=== PATIENT | male | born 1965 | race Caucasian/White ===

== ENCOUNTER → 2018-06-15 | Outpatient (CLI) | payer OTHER ==
--- NOTE | 2018-06-16 05:15 | REP ---
Clinical: Lung screening. History nicotine dependence Comparison: None Technique: Axial low-dose noncontrast images from the thoracic inlet to the upper abdomen using lung screening technique. Findings: The lung patel are well-aerated. No consolidation, significant nodule or mass lesion is appreciated. No pleural effusion/reaction or pneumothorax. Tracheobronchial tree is patent. Mediastinum demonstrates mild atherosclerotic changes of the coronary arteries without cardiomegaly. Impression: Lung-RADS category I. No nodule or suspicious abnormality. Management recommendations include annual low-dose CT reevaluation. Electronically Signed by Fran Mills MD 06/16/2018 05:06 A
== END ==
LOC: M RAD 17:19
PROVIDERS: ATTEND Internal Medicine
DX: Z12.2 Encounter for screening for malignant neoplasm of respiratory organs (principal); Z87.891 Personal history of nicotine dependence

== ENCOUNTER 2018-08-18 07:08 | Day surgery (SDC) | payer OTHER ==
[~2018-08-18] VITALS: Ht 170.2 cm; Wt 111.5 kg
[~2018-08-18 07:08] MED LIST: ASPI81CH44 PO; ATOR80TA59 PO; CARV25TA PO; CYCL10TA PO; FENO145T13 PO; FURO20TA2 PO; JARD1TAB3 PO; LISI-538 PO; LOVA1CAP17 PO; METF500T13 PO; NOVOINJ3 SC; NS 1,000 ML IV ONE; ONETAB32 PO; QC A650T3 PO; RA M500C PO; RANI1TAB38 PO; SYNT75TA PO; TOUJ1.2I SC; VITA50005 PO; [UNRECOGNIZED DRUG - OTHER] PO
[2018-08-18] MEDS ORDERED: PROPOFOL 200 MG/20 ML VIAL As Ordered ONE (07:50)
[2018-08-18] MEDS ORDERED: LIDOCAINE 2% INJ 100 MG/5 ML SDV (FOR ANES.) As Ordered ONE (07:50)
--- NOTE | 2018-08-18 09:06 | ROOR ---
Patient Name: Abiel Sumner Procedure Date: 08/18/2018 8:27 AM Date of : 1965 Age: 53 Room: [facility] Gender: Male Note Status: Finalized Procedure: Total Colonoscopy to Cecum + Cold Snare Polypectomy Indications: High risk colon cancer surveillance: Personal history of colonic polyps, Last colonoscopy: 2012 Providers: Ty Castro MD Referring MD: LUCINA VERDUGO MD Requesting Provider: Medicines: Monitored Anesthesia Care Complications: No immediate complications. Procedure: Pre-Anesthesia Assessment: - The heart rate, respiratory rate, oxygen saturations, blood pressure, adequacy of pulmonary ventilation, and response to care were monitored throughout the procedure. The Colonoscope was introduced through the anus and advanced to the cecum, identified by appendiceal orifice and ileocecal valve. The colonoscopy was performed without difficulty. The patient tolerated the procedure well. The quality of the bowel preparation was excellent. Findings: The perianal and digital rectal examinations were normal. Non-bleeding internal hemorrhoids were found during retroflexion. The hemorrhoids were small and Grade I (internal hemorrhoids that do not prolapse). Two sessile polyps were found at 60 cm proximal to the anus. The polyps were small in size. These polyps were removed with a cold snare. Resection and retrieval were complete. The exam was otherwise without abnormality on direct and retroflexion views. Impression: - Non-bleeding internal hemorrhoids. - Two small polyps at 60 cm proximal to the anus, removed with a cold snare. Resected and retrieved. - The examination was otherwise normal on direct and retroflexion views. - The exam was otherwise normal to the cecum. Recommendation: - Patient has a contact number available for emergencies. The signs and symptoms of potential delayed complications were discussed with the patient. Return to normal activities tomorrow. Written discharge instructions were provided to the patient. - High fiber diet. - Discharge patient to home. - Continue present medications. - Await pathology results. - Telephone GI clinic for pathology results in 1 week. - Repeat colonoscopy in 5 years for surveillance based on pathology results. - Return to referring physician. - Check Portal Online for Path Results.([email or web address] - The findings and recommendations were discussed with the patient's family. Ty Castro MD Ty Castro MD 08/18/2018 9:06:37 AM Electronically signed by Ty Castro MD Number of Addenda: 0 Note Initiated On: 08/18/2018 8:27 AM Estimated Blood Loss: Estimated blood loss: none.
[2018-08-18 09:31] VITALS: BP 125/66
== END 2018-08-18 09:33 | disposition home or self-care (01) ==
LOC: M OPP 07:08
PROVIDERS: ATTEND Internal Medicine Gastroenterology
DX: Z12.11 Encounter for screening for malignant neoplasm of colon (principal); Z86.010 Personal history of colon polyps; Z79.4 Long term (current) use of insulin; Z79.899 Other long term (current) drug therapy; Z87.891 Personal history of nicotine dependence

== ENCOUNTER → 2020-05-17 | Outpatient (CLI) | payer OTHER ==
[~2020-05-17] MED LIST changes: +ASPI1CHW3 PO; -ASPI81CH44 PO; +CYCL-707 PO; -CYCL10TA PO; -FENO145T13 PO; +FENO145T7 PO; -LISI-538 PO; +LISI20TA33 PO; -NS 1,000 ML IV ONE
--- NOTE | 2020-05-17 10:27 | REP ---
INDICATION: NICOTINE DEPEND. COMPARISON: Low-dose lung screening chest CT dated 06/15/2018. TECHNIQUE: The study is performed without IV contrast. Images are presented at lung windowing only. FINDINGS: There are no lung nodules or masses. There are no infiltrates or pleural effusions. There is no change from the prior study. IMPRESSION: Category 1 low-dose lung screening chest CT. The probability of malignancy is less than 1%. Depending on risk factors annual follow-up low-dose lung screening chest CT should be considered. <Electronically signed by Bud Dietz > 05/17/20 1024
== END ==
LOC: M RAD 09:46
PROVIDERS: ATTEND Family Medicine
DX: Z12.2 Encounter for screening for malignant neoplasm of respiratory organs (principal); Z87.891 Personal history of nicotine dependence

== ENCOUNTER → 2021-07-26 | Outpatient (CLI) | payer OTHER | LOC: M RAD 13:03 | PROVIDERS: ATTEND Physician Assistant | DX: R91.8 Other nonspecific abnormal finding of lung field (principal); I25.10 Atherosclerotic heart disease of native coronary artery without angina pectoris; I70.0 Atherosclerosis of aorta; K44.9 Diaphragmatic hernia without obstruction or gangrene; K76.89 Other specified diseases of liver; R93.2 Abnormal findings on diagnostic imaging of liver and biliary tract ==

== ENCOUNTER → 2021-08-09 | Outpatient (CLI) | payer OTHER | LOC: M SLEEP 20:00 | PROVIDERS: ATTEND Physician Assistant | DX: G47.33 Obstructive sleep apnea (adult) (pediatric) (principal) ==

== ENCOUNTER → 2021-11-18 | Outpatient (CLI) | payer OTHER ==
[~2021-11-18] MED LIST changes: +D 50CAP2 PO; +DULA4.5P SC; +EZET1TAB PO; +FAMO20TA5 PO; +GABA-282 PO; +METF-838 PO; +OMEG1CAP85 PO; +ROSU40TA4 PO; +TAMS1CAP17 PO
== END ==
LOC: M LABSMTC 09:45
PROVIDERS: ATTEND Anesthesiology
DX: Z01.812 Encounter for preprocedural laboratory examination (principal); Z20.822 Contact with and (suspected) exposure to COVID-19

== ENCOUNTER 2021-11-23 07:19 | Day surgery (SDC) | payer OTHER ==
[~2021-11-23] VITALS: Ht 182.9 cm; Wt 111.9 kg
[~2021-11-23 07:19] MED LIST changes: +LIDOCAINE 2% 100MG/5ML SDV (FOR ANES.) As Ordered ONE; +NS 1,000 ML IV ONE; +propofoL 200 MG/20 ML VIAL As Ordered ONE
[2021-11-23] MEDS ORDERED: fentaNYL 100 MCG/2 ML INJECTION As Ordered ONE (08:09)
[2021-11-23 09:00] VITALS: BP 109/65
== END 2021-11-23 09:30 | disposition home or self-care (01) ==
LOC: M OPP 07:19
PROVIDERS: ATTEND Internal Medicine Gastroenterology
DX: R13.10 Dysphagia, unspecified (principal); R12 Heartburn; Z79.02 Long term (current) use of antithrombotics/antiplatelets; Z53.8 Procedure and treatment not carried out for other reasons; Z79.4 Long term (current) use of insulin; Z79.82 Long term (current) use of aspirin; Z79.899 Other long term (current) drug therapy; Z87.891 Personal history of nicotine dependence; Z86.010 Personal history of colon polyps; E11.9 Type 2 diabetes mellitus without complications; G47.30 Sleep apnea, unspecified; Z99.89 Dependence on other enabling machines and devices; F32.9 Major depressive disorder, single episode, unspecified; N14.19 Nephropathy induced by other drugs, medicaments and biological substances; N40.0 Benign prostatic hyperplasia without lower urinary tract symptoms
CPT/HCPCS: 43235; J3010

== ENCOUNTER → 2022-08-27 | Outpatient (CLI) | payer OTHER ==
[~2022-08-27] MED LIST changes: +ASPI-655 PO; -ASPI1CHW3 PO; -LIDOCAINE 2% 100MG/5ML SDV (FOR ANES.) As Ordered ONE; -NS 1,000 ML IV ONE; -propofoL 200 MG/20 ML VIAL As Ordered ONE
== END ==
LOC: M RAD 08:09
PROVIDERS: ATTEND Physician Assistant
DX: Z12.2 Encounter for screening for malignant neoplasm of respiratory organs (principal); Z87.891 Personal history of nicotine dependence; I70.0 Atherosclerosis of aorta

== ENCOUNTER 2023-01-17 12:20 | Emergency (ER) | payer OTHER ==
[2023-01-17] MEDS ORDERED: HYDR-3713 PO (15:19)
[2023-01-17] MEDS ORDERED: LIDOCAINE 5% (LIDODERM) PATCH TD ONE (15:20)
[2023-01-17 15:50] VITALS: BP 126/69; TEMP 98; O2SAT 97
== END 2023-01-17 15:59 | disposition home or self-care (01) ==
LOC: M ED 12:20
DX: S22.32XA Fracture of one rib, left side, initial encounter for closed fracture (principal); W10.8XXA Fall (on) (from) other stairs and steps, initial encounter; E11.9 Type 2 diabetes mellitus without complications; I10 Essential (primary) hypertension; G47.33 Obstructive sleep apnea (adult) (pediatric); Z79.82 Long term (current) use of aspirin; Z79.4 Long term (current) use of insulin; Z79.811 Long term (current) use of aromatase inhibitors; Z79.899 Other long term (current) drug therapy

== ENCOUNTER → 2023-03-10 | Outpatient (CLI) | payer OTHER ==
[~2023-03-10] MED LIST changes: +HYDR-3713 PO
== END ==
LOC: M CARPUL 11:08
PROVIDERS: ATTEND Internal Medicine
DX: R01.1 Cardiac murmur, unspecified (principal)

== ENCOUNTER 2023-06-02 10:11 | Day surgery (SDC) | payer OTHER ==
[~2023-06-02] VITALS: Ht 175.3 cm; Wt 110.2 kg
[~2023-06-02 10:11] MED LIST changes: +AMIT25TA19 PO; +fentaNYL 100 MCG/2 ML INJECTION As Ordered ONE
[2023-06-02] MEDS ORDERED: propofoL 500 MG/50 ML VIAL As Ordered ONE (10:12)
[2023-06-02] MEDS: NS 1,000 ML IV ONE (10:29)
[2023-06-02 13:07] VITALS: TEMP 97.9
[2023-06-02 13:19] VITALS: BP 133/80; O2SAT 95
== END 2023-06-02 13:19 | disposition home or self-care (01) ==
LOC: M OPP 10:11
PROVIDERS: ATTEND Internal Medicine Gastroenterology
DX: Z12.11 Encounter for screening for malignant neoplasm of colon (principal); Z86.010 Personal history of colon polyps; K64.0 First degree hemorrhoids; K57.30 Diverticulosis of large intestine without perforation or abscess without bleeding; K22.89 Other specified disease of esophagus; K22.70 Barrett's esophagus without dysplasia; K44.9 Diaphragmatic hernia without obstruction or gangrene; K31.89 Other diseases of stomach and duodenum; R13.10 Dysphagia, unspecified; R12 Heartburn; E11.9 Type 2 diabetes mellitus without complications; G47.30 Sleep apnea, unspecified; Z99.89 Dependence on other enabling machines and devices; Z79.02 Long term (current) use of antithrombotics/antiplatelets; Z79.1 Long term (current) use of non-steroidal anti-inflammatories (NSAID); Z79.82 Long term (current) use of aspirin; Z79.891 Long term (current) use of opiate analgesic; Z79.899 Other long term (current) drug therapy
CPT/HCPCS: 43239; 45378; 88305; J3010

== ENCOUNTER → 2024-02-21 | Outpatient (CLI) | payer OTHER ==
[~2024-02-21] MED LIST changes: +GABA-1172 PO; -GABA-282 PO; +OMEG-28 PO; -OMEG1CAP85 PO; -ROSU40TA4 PO; +ROSU40TA81 PO; -fentaNYL 100 MCG/2 ML INJECTION As Ordered ONE
== END ==
LOC: M EKG 08:15
PROVIDERS: ATTEND Internal Medicine
DX: R06.09 Other forms of dyspnea (principal)

== ENCOUNTER → 2024-03-04 | Outpatient (CLI) | payer OTHER | LOC: M CARPUL 14:13 | PROVIDERS: ATTEND Internal Medicine | DX: R06.09 Other forms of dyspnea (principal); R42 Dizziness and giddiness; I25.6 Silent myocardial ischemia ==

== ENCOUNTER → 2024-04-09 | Outpatient (CLI) | payer OTHER ==
[2024-04-09 11:08] LABS: BASO % 0.7 % (0.0-1.0); EOS # 0.1 10^3/uL (0.0-0.5); EOS % 2.1 % (0.0-3.0); HEMATOCRIT 39.2 % (42.0-52.0); HEMOGLOBIN 12.6 g/dl (13.5-17.5); LYMPH # 2.4 10^3/uL (1.5-5.0); LYMPH % 42.2 % (24.0-44.0); MEAN CORPUSCULAR HEMOGLOBIN 26.3 pg (27.0-33.0); MEAN CORPUSCULAR HGB CONC 32.1 g/dl (32.0-36.5); MEAN CORPUSCULAR VOLUME 81.7 fl (80.0-96.0); MONO # 0.6 10^3/uL (0.0-0.8); MONO % 9.9 % (2.0-8.0); NEUTROPHILS # 2.5 10^3/uL (1.5-8.5); NEUTROPHILS % 44.4 % (36.0-66.0); PLATELET COUNT, AUTOMATED 215 10^3/uL (150-450); WHITE BLOOD COUNT 5.7 10^3/uL (4.0-10.0)
[2024-04-09 11:29] LABS: CALCIUM LEVEL 9.6 MG/DL (8.3-10.6); CREATININE FOR GFR 1.43 MG/DL (0.70-1.30); GLOMERULAR FILTRATION RATE 53.5 (>49); POTASSIUM SERUM 4.8 MMOL/L (3.5-5.1)
== END ==
LOC: M LAB 10:19
PROVIDERS: ATTEND Physician Assistant
DX: R06.02 Shortness of breath (principal)